=== PATIENT | female | born 1985 | race Two or more races ===

== ENCOUNTER 2023-12-11 22:40 | Emergency (ER) | payer OTHER ==
[~2023-12-11] VITALS: Ht 167.6 cm; Wt 134.3 kg
[~2023-12-11 22:40] MED LIST: PRENA1 TRUE CO1 EACH PO
[2023-12-11] MEDS ORDERED: LABETALOL 11 MG/1 ML IV (22:57)
[2023-12-11 23:39] LABS: HEMATOCRIT 37.9 % (36.0-45.00); HEMOGLOBIN 12.6 g/dL (12.0-15.00); MEAN CELL VOLUME 75.1 fL (80.00-100.00); MEAN CORPUSCULAR HEMOGLOBIN 25.1 pg (27.00-32.0); MEAN CORPUSCULAR HGB CONC 33.4 g/dl (32.0-36.0); PLATELET COUNT 205 K/uL (150-450); RED BLOOD COUNT 5.04 M/uL (4.00-6.00); RED CELL DISTRIBUTION WIDTH 18.7 % (11.5-14.5)
[2023-12-12 00:41] LABS: URINE APPEARANCE Clear; URINE BILIRRUBIN Negative (NEGATIVE); URINE BLOOD Negative; URINE COLOR Yellow; URINE GLUCOSE Negative (NEGATIVE); URINE LEUKOCYTE Negative; URINE NITRATE Negative; URINE PROTEIN Negative (NEGATIVE); URINE UROBILINOGEN 0.2 E.U./dl
[2023-12-12 00:45] LABS: URINE BACTERIA 347.7 uL (0.0-1933); URINE EPITHELIAL CELLS 7.7 uL (0.0-38.8); URINE RBC 3.6 uL (0.0-20.8)
[2023-12-12] MEDS ORDERED: ACETAMINOPHEN 500 MG GEL..CAP PO ONE (02:15)
== END 2023-12-12 02:06 | disposition home or self-care (01) ==
LOC: ER 22:41
DX: O99.511 Diseases of the respiratory system complicating pregnancy, first trimester (principal); Z3A.11 11 weeks gestation of pregnancy; Z88.6 Allergy status to analgesic agent; J06.9 Acute upper respiratory infection, unspecified; Z20.822 Contact with and (suspected) exposure to COVID-19

== ENCOUNTER 2024-04-05 16:31 | Outpatient (CLI) | payer OTHER ==
[~2024-04-05 16:31] MED LIST changes: +LABETALOL 11 MG/1 ML IV
== END 2024-04-05 17:13 | disposition home or self-care (01) ==
LOC: NST 16:31
PROVIDERS: ATTEND Obstetrics & Gynecology
DX: Z34.82 Encounter for supervision of other normal pregnancy, second trimester (principal)

== ENCOUNTER 2024-04-21 17:26 | Outpatient (CLI) | payer OTHER | END 2024-04-21 17:50 | disposition home or self-care (01) | LOC: NST 17:26 | PROVIDERS: ATTEND Obstetrics & Gynecology Maternal & Fetal Medicine | DX: Z34.83 Encounter for supervision of other normal pregnancy, third trimester (principal) ==

== ENCOUNTER → 2024-04-27 | Outpatient (CLI) | payer OTHER ==
[2024-04-27 17:42] VITALS: BP 160/70
== END | disposition home or self-care (01) ==
LOC: NST 17:14
PROVIDERS: ATTEND Obstetrics & Gynecology Maternal & Fetal Medicine
DX: Z34.83 Encounter for supervision of other normal pregnancy, third trimester (principal)

== ENCOUNTER 2024-05-12 16:45 | Outpatient (CLI) | payer OTHER | END 2024-05-12 17:52 | disposition home or self-care (01) | LOC: NST 16:45 | PROVIDERS: ATTEND Obstetrics & Gynecology | DX: Z34.83 Encounter for supervision of other normal pregnancy, third trimester (principal) ==

== ENCOUNTER 2024-05-26 12:20 | Outpatient (CLI) | payer OTHER | END 2024-05-26 12:59 | disposition home or self-care (01) | LOC: NST 12:20 | PROVIDERS: ATTEND Obstetrics & Gynecology Maternal & Fetal Medicine | DX: Z34.83 Encounter for supervision of other normal pregnancy, third trimester (principal) ==

== ENCOUNTER 2024-06-03 13:10 | Outpatient (CLI) | payer OTHER | END 2024-06-03 13:55 | disposition home or self-care (01) | LOC: NST 13:10 | PROVIDERS: ATTEND Obstetrics & Gynecology Gynecology | DX: Z34.83 Encounter for supervision of other normal pregnancy, third trimester (principal) ==

== ENCOUNTER 2024-06-09 03:03 | Outpatient (CLI) | payer OTHER ==
[2024-06-09 02:04] VITALS: BP 123/84
[2024-06-09 02:20] VITALS: BP 123/84
[2024-06-09] MEDS ORDERED: LABETALOL HCL200 MG PO (03:27)
[2024-06-09 03:37] VITALS: BP 127/84
[2024-06-09] MEDS ORDERED: ACETAMINOPHEN 325 MG TABLET PO PRN ×2 (03:45→06:15)
[2024-06-09 06:05] VITALS: BP 135/88; O2SAT 97
[2024-06-09] MEDS ORDERED: GLUMETZA500 MG PO (12:15)
== END 2024-06-09 08:54 | disposition home or self-care (01) ==
LOC: OBS/DEL 03:03
PROVIDERS: ATTEND Obstetrics & Gynecology
DX: O13.3 Gestational [pregnancy-induced] hypertension without significant proteinuria, third trimester (principal); Z3A.36 36 weeks gestation of pregnancy

== ENCOUNTER 2024-06-09 11:20 | Inpatient (IN) | payer OTHER ==
[~2024-06-09] VITALS: Ht 167.6 cm; Wt 5.0 kg
[~2024-06-09 11:20] MED LIST changes: +LABETALOL HCL200 MG PO
[2024-06-09] MEDS ORDERED: GLUMETZA500 MG PO (12:15)
[2024-06-09 12:42] LABS: INR 0.97; PARTIAL THROMBOPLASTIN TIME 27.8 SECONDS (22.0-34.0); PROTHROMBIN TIME 10.6 SECONDS (9.0-11.5)
[2024-06-15 08:57] VITALS: BP 115/88
[2024-06-15] MEDS ORDERED: ERYTHROMYCIN BASE OPHT 1GM EACH TUBE OP ONE (13:18)
[2024-06-15] MEDS ORDERED: OXYTOCIN 10 UNITS/ML VIAL ONE ×2 (13:18→18:39)
[2024-06-15] MEDS ORDERED: CITRIC ACID/SODIUM CITRATE 30 ML BLIST.PACK PO ONE (13:19)
[2024-06-15] MEDS ORDERED: CEFAZOLIN SODIUM 1,000 MG VIAL ONE (13:19)
[2024-06-15] MEDS ORDERED: CARBOPROST TROMETHAMINE 250 MCG/ML AMPUL IM ONE (15:07)
[2024-06-15] MEDS ORDERED: RINGERS SOLUTION,LACTATED 1,000 ML IV SCH (15:45)
[2024-06-15] MEDS ORDERED: OXYTOCIN 1,000 ML IV ONE (15:45)
[2024-06-15] MEDS ORDERED: PROMETHAZINE HCL 50 MG/ML AMPUL IV PRN (15:45)
[2024-06-15] MEDS ORDERED: MEPERIDINE HCL/PF 50 MG/ML VIAL IV PRN (15:45)
[2024-06-15] MEDS ORDERED: GABAPENTIN 300 MG CAPSULE PO SCH (17:00)
[2024-06-15] MEDS ORDERED: SIMETHICONE 125 MG CAPSULE PO SCH (17:00)
[2024-06-15] MEDS ORDERED: PROMETHAZINE HCL 50 MG/ML AMPUL IM ONE (17:33)
[2024-06-15] MEDS ORDERED: ACETAMINOPHEN 500 MG GEL..CAP PO SCH (18:00)
[2024-06-15] MEDS ORDERED: ONDANSETRON HCL 2 MG/ML VIAL IV SCH (18:00)
[2024-06-15] MEDS ORDERED: LABETALOL HCL 100 MG/20 ML ML ONE (18:06)
[2024-06-15 18:55] VITALS: BP 129/86
[2024-06-15] MEDS ORDERED: LABETALOL HCL 100 MG/20 ML ML IV PUSH ONE (19:15)
[2024-06-15] MEDS ORDERED: LABETALOL HCL 200 MG TABLET PO SCH (21:00)
[2024-06-16 00:30] VITALS: BP 121/80
[2024-06-16] MEDS ORDERED: LABETALOL HCL 200 MG TABLET PO SCH (05:00)
[2024-06-16 06:58] LABS: HEMATOCRIT 31.9 % (36.0-45.00); HEMOGLOBIN 10.7 g/dL (12.0-15.00); MEAN CELL VOLUME 76.6 fL (80.00-100.00); MEAN CORPUSCULAR HEMOGLOBIN 25.7 pg (27.00-32.0); MEAN CORPUSCULAR HGB CONC 33.6 g/dl (32.0-36.0); PLATELET COUNT 216 K/uL (150-450); RED BLOOD COUNT 4.16 M/uL (4.00-6.00); RED CELL DISTRIBUTION WIDTH 16.4 % (11.5-14.5)
[2024-06-16 08:20] VITALS: BP 116/77
[2024-06-16] MEDS ORDERED: DOCUSATE SODIUM 100MG CAP PO SCH (09:00)
[2024-06-16] MEDS ORDERED: ENOXAPARIN SODIUM 40 MG/0.4 ML SYRINGE SUBCUTANEO SCH (09:00)
[2024-06-16 16:00] VITALS: BP 116/74
[2024-06-17] VITALS: BP 120/76
[2024-06-17 05:00] VITALS: BP 135/84
[2024-06-17 08:57] VITALS: BP 140/93
[2024-06-17] MEDS ORDERED: CYCLOBENZAPRINE HCL 5 MG TABLET PO SCH (09:00)
[2024-06-17] MEDS ORDERED: METOCLOPRAMIDE HCL 10 MG in DEXTROSE 5 % IN WATER 50 ML IV SCH (12:00)
[2024-06-17 15:57] VITALS: BP 148/83
[2024-06-17 20:59] VITALS: BP 139/80
[2024-06-18 01:38] VITALS: BP 138/92
[2024-06-18 08:42] VITALS: BP 126/85
[2024-06-18] MEDS ORDERED: LABETALOL HCL 100 MG TABLET PO SCH (10:31)
[2024-06-18 16:44] VITALS: BP 111/76
[2024-06-19 01:08] VITALS: BP 126/85
[2024-06-19 08:39] VITALS: BP 135/86
== END 2024-06-19 12:55 | disposition home or self-care (01) | DRG 787 ==
LOC: O/R 06-15 07:43 → OB/GYN 06-15 08:40
PROVIDERS: Obstetrics & Gynecology; ADMIT Obstetrics & Gynecology Gynecology; ATTEND Obstetrics & Gynecology Gynecology
PROC: 4A1HXCZ Monitoring of Products of Conception, Cardiac Rate, External Approach (ICD-10-PCS; 2024-06-15)
PROC: 10D00Z1 Extraction of Products of Conception, Low, Open Approach (ICD-10-PCS; principal; 2024-06-15 08:40)
DX: O36.63X0 Maternal care for excessive fetal growth, third trimester, not applicable or unspecified (principal); O10.02 Pre-existing essential hypertension complicating childbirth; O24.420 Gestational diabetes mellitus in childbirth, diet controlled; O34.211 Maternal care for low transverse scar from previous cesarean delivery; Z3A.37 37 weeks gestation of pregnancy; Z37.0 Single live birth; Z20.822 Contact with and (suspected) exposure to COVID-19